=== PATIENT | female | born 1970 | race Caucasian/White ===

== ENCOUNTER 2019-08-22 09:39 | Emergency (ER) | payer OTHER ==
--- NOTE | 2019-08-22 10:07 | ER Document Report ---
ED Medical Screen (RME) - General Chief Complaint: Abscess Stated Complaint: ABSCESS/TAILBONE Time Seen by Provider: 08/22/19 10:04 Primary Care Provider: PRADIP DANIEL NP [Primary Care Provider] - Follow up as needed Mode of Arrival: Ambulatory Information source: Patient Notes: 49-year-old female presents to ED for a pilonidal abscess. She was sent over by her primary care doctor to have the abscess I&D. She states she has been told that at some point she will need to get it surgically removed. She is alert oriented respirations regular and unlabored speaking in full sentences. She states the pain started on Tuesday night and has progressively gotten worse. She states she has a history of a T&A and hysterectomy. I have greeted and performed a rapid initial assessment of this patient. A comprehensive ED assessment and evaluation of the patient, analysis of test results and completion of medical decision making process will be conducted by an additional ED providers. TRAVEL OUTSIDE OF THE [place] IN LAST 30 DAYS: No - Related Data Allergies/Adverse Reactions: Sulfa (Sulfonamide Antibiotics) Allergy (Severe, Verified 03/18/15 09:32) rash Past Medical History - Past Medical History Cardiac Medical History: Reports: Hx Heart Murmur - c preg? Denies: Hx Atrial Fibrillation, Hx Congestive Heart Failure, Hx Coronary Artery Disease, Hx Heart Attack, Hx Hypercholesterolemia, Hx Hypertension, Hx Peripheral Vascular Disease Renal/ Medical History: Denies: Hx Ovarian Cysts, Hx Pelvic Inflammatory Disease Malignancy Medical History: Denies: Hx Breast Cancer, Hx Cervical Cancer, Hx Leukemia, Hx Ovarian Cancer Infectious Medical History: Denies: Hx HIV Past Surgical History: Reports: Hx Tonsillectomy. Denies: Hx Appendectomy, Hx Bowel Surgery, Hx Section, Hx Cholecystectomy, Hx Coronary Artery Bypass Graft, Hx Gastric Bypass Surgery, Hx Herniorrhaphy, Hx Hysterectomy, Hx Mastectomy, Hx Pacemaker, Hx Tubal Ligation Physical Exam - Vital signs Vitals: Temp Pulse Resp BP Pulse Ox 98.4 F 79 18 110/62 100 08/22/19 09:46 08/22/19 09:46 08/22/19 09:46 08/22/19 09:46 08/22/19 09:46 Course - Vital Signs Vital signs: Temp Pulse Resp BP Pulse Ox 98.4 F 79 18 110/62 100 08/22/19 09:46 08/22/19 09:46 08/22/19 09:46 08/22/19 09:46 08/22/19 09:46 Doctor's Discharge - Discharge Referrals: PRADIP DANIEL NP [Primary Care Provider] - Follow up as needed
--- NOTE | 2019-08-22 11:33 | ER Document Report ---
HPI - HPI Time Seen by Provider: 08/22/19 10:04 Pain Level: 4 Notes: Otherwise healthy 41-year-old female presenting to the emergency department chief complaint of possible abscess to the top of her buttocks. Patient reports this is been present for about 2 days. She denies any history of same. She denies any recent fevers or chills. - CONSTITUTIONAL Constitutional: DENIES: Fever, Chills - REPRODUCTIVE LMP: hysterectomy Reproductive: DENIES: : Past Medical History - General Information source: Patient - Social History Smoking Status: Never Smoker Chew tobacco use (# tins/day): No Frequency of alcohol use: Social Drug Abuse: None Family History: Reviewed & Not Pertinent Patient has suicidal ideation: No Patient has homicidal ideation: No - Past Medical History Cardiac Medical History: Reports: Hx Heart Murmur - c preg? Denies: Hx Atrial Fibrillation, Hx Congestive Heart Failure, Hx Coronary Artery Disease, Hx Heart Attack, Hx Hypercholesterolemia, Hx Hypertension, Hx Peripheral Vascular Disease Endocrine Medical History: Denies: Hx Diabetes Mellitus Type 2 Renal/ Medical History: Denies: Hx Ovarian Cysts, Hx Pelvic Inflammatory Disease Malignancy Medical History: Denies: Hx Breast Cancer, Hx Cervical Cancer, Hx Leukemia, Hx Ovarian Cancer Infectious Medical History: Denies: Hx HIV Past Surgical History: Reports: Hx Tonsillectomy. Denies: Hx Appendectomy, Hx Bowel Surgery, Hx Section, Hx Cholecystectomy, Hx Coronary Artery Bypass Graft, Hx Gastric Bypass Surgery, Hx Herniorrhaphy, Hx Hysterectomy, Hx Mastectomy, Hx Pacemaker, Hx Tubal Ligation Vertical Provider Document - CONSTITUTIONAL Notes: PHYSICAL EXAMINATION: GENERAL: Well-appearing, well-nourished and in no acute distress. HEAD: Atraumatic, normocephalic. EYES: Pupils equal round extraocular movements intact, conjunctiva are normal. ENT: Nares patent NECK: Normal range of motion LUNGS: No respiratory distress Musculoskeletal: Normal range of motion NEUROLOGICAL: Normal speech, normal gait. PSYCH: Normal mood, normal affect. SKIN: Erythema with induration and fluctuance noted to the left side of patient's buttocks. - INFECTION CONTROL TRAVEL OUTSIDE OF THE [place] IN LAST 30 DAYS: No Course - Re-evaluation Re-evalutation: Abscess incised and drained, small amount of purulent drainage obtained. Patient tolerated well. Patient started on oral antibiotics. - Vital Signs Vital signs: Temp Pulse Resp BP Pulse Ox 98.4 F 79 18 110/62 100 08/22/19 09:46 08/22/19 09:46 08/22/19 09:46 08/22/19 09:46 08/22/19 09:46 Procedures - Incision and Drainage buttocks Type: Simple Anesthetic type: 1% Lidocaine Blade size: 11 I&D procedure: Betadine prep applied Incision Method: Incision made by scalpel Discharge - Discharge Clinical Impression: Abscess Condition: Stable Disposition: HOME, SELF-CARE Additional Instructions: You were seen for an abscess that required drainage. Please clean this area with soap and water twice daily and apply a topical antibiotic. Dress the area after each cleaning. Please take antibiotics as prescribed. Please return if you develop fever, vomiting, the pain at the site worsens, you notice spreading redness from the area, or you have any other symptoms that are concerning to you. Prescriptions: Clindamycin HCl 300 mg PO TID #21 capsule Forms: Return to Work Referrals: PRADIP DANIEL NP [Primary Care Provider] - Follow up as needed
[2019-08-22 12:57] VITALS: BP 104/59
== END 2019-08-22 12:55 | disposition home or self-care (01) ==
LOC: ER 09:39
DX: L02.31 Cutaneous abscess of buttock (principal)
CPT/HCPCS: 87070; 87075; 87077; 87186; 87205; 99283